=== PATIENT | female | born 1960 | race Caucasian/White ===

== ENCOUNTER 2021-10-29 14:30 | Emergency (ER) | payer BC, SELFPAY ==
--- NOTE | ~2021-10-29 | XR_ITS ---
EXAMINATION: XR ankle RT 2V DATE: 10/29/2021 15:41 INDICATION: Right ankle pain and swelling TECHNIQUE: Anteroposterior, oblique, mortise, and lateral views of the right ankle were obtained. COMPARISON: None. FINDINGS: Diffuse osteopenia. Alignment is normal. Triangular ossicle projecting lung cephalad margin of the po sterior continuous without evident donor site most consistent with an os trigonum. No fracture. Joint spaces are well maintained. No ankle joint effusion. Mild soft tissue swelling about the lateral ma lleolus. IMPRESSION: 1. No acute osseous abnormality. Reviewed, dictated and finalized at location A. FIC ENGINEERING DIRECTOR
--- NOTE | ~2021-10-29 | CT_ITS ---
EXAMINATION: CT knee RT wo con DATE: 10/29/2021 16:29 INDICATION: Right knee tibial plateau fracture TECHNIQUE: High resolution computed tomography (CT) of the right knee was performed without intraveno us contrast. Additional sagittal and coronal reconstructions were performed. Automated exposure contr ol and iterative reconstruction technique were employed. The dose-length product was 546.09 mGy-cm. COMPARISON: Right knee radiographs dated 10/29/2021 FINDINGS: Comminuted fractures involving the majority of the articular surface area of the lateral tibial plate au. There is Doppler type depression of approximately 2.9 x 2.4 cm region at the central to anterior aspect of the lateral tibial plateau. The depression is greatest anteriorly where it raises depth of approximately 8 mm. The fracture remains limited to the lateral tibial plateau and underlying lateral metaphyseal region with no fracture crossing across the medial side of the tibia or involvement of t he medial tibial plateau. There is suggestion of a prior realignment osteotomy of the patellar tendon insertion which appears to be located along the medial side of the anterior tibial tuberosity with s econdary hypertrophic change. No fracture of the patella or visualized distal femur. 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 More subtle cortical irregularity along the medial trochlea with marginal patellar and trochlear oste ophytes consistent with additional osteoarthritis. Multiple tiny calcific densities along the margins of the lateral compartment near the expected location of the menisci which could represent either ch ondrocalcinosis/heterotopic ossification of the menisci or potentially tiny loose fracture fragments. Large layering lipohemarthrosis. IMPRESSION: 1. Comminuted fractures involving the majority of the articular surface of the lateral tibial plateau with 8 mm TI punched type depression of articular fragments comprising significant portion of the an terior to central lateral tibial plateau. 2. Large associated lipohemarthrosis. 3. Tricompartmental osteoarthritis at the right knee with central osteophytes indicating high-grade c hondral malacia along the weightbearing medial and lateral femoral condyles. Reviewed, dictated and finalized at location A. OLOGY CT TECHNOLOGIST IMPRESSION: 1. Comminuted fractures involving the majority of the articular surface of the lateral tibial plateau with 8 mm TI punched type depression of articular fragme nts comprising significant portion of the anterior to central lateral tibial pl ateau. 2. Large associated lipohemarthrosis. 3. Tricompartmental osteoarthritis at the right knee with central osteophytes i ndicating high-grade chondral malacia along the weightbearing medial and latera l femoral condyles.
--- NOTE | ~2021-10-29 | XR_ITS ---
XR tibia fibula RT 2V DATE: 10/29/2021 15:41 INDICATION: Fall. Right leg injury, pain. TECHNIQUE: AP and lateral views COMPARISON: 10/29/2021 right knee FINDINGS: There is diffuse osteopenia. There is depressed interpreted the fracture of the lateral tibial plateau. There is associated promin ent knee joint effusion, with lipohemarthrosis of the knee joint better document on the right knee ra diographs. Inferior pole of patella appears unremarkable on this view. The remainder of the tibia and fibula appear intact. Alignment is preserved at the knee and ankle vasquez nts. Osteoarthritis at the right knee joint. IMPRESSION: Depressed lateral tibial plateau fracture with right knee lipoma hemarthrosis Osteoarthritis at the right knee Osteopenia Reviewed, dictated and finalized at location A. 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
--- NOTE | ~2021-10-29 | XR_ITS ---
XR shoulder RT min 2V DATE: 10/29/2021 15:41 INDICATION: Fall. Right shoulder injury, pain TECHNIQUE: 3 views COMPARISON: None FINDINGS: There is diffuse osteopenia. No fracture or dislocation, periosteal reaction or bone destruction or abnormal soft tissue calcifica tion is evident. There is evidence of rotator cuff atrophy. Cervical spondylosis. Status post sternotomy/cardiac valve replacement IMPRESSION: Diffuse osteopenia Probable rotator cuff atrophy No fracture or dislocation of right shoulder Reviewed, dictated and finalized at location A. INATION SAW OPERATOR
--- NOTE | ~2021-10-29 | XR_ITS ---
XR knee RT min 4V DATE: 10/29/2021 15:41 INDICATION: Fall. Right knee pain. TECHNIQUE: 4 views, including crosstable lateral COMPARISON: None FINDINGS: There is prominent lipohemarthrosis associated with depressed lateral tibial plateau fractu re. There is incongruity of the inferior patellar cortex on the lateral view; subtle patellar fracture is not excluded. Consider CT or MR correlation. Diffuse osteopenia. There is subtle chondrocalcinosis. There is mild osteoarthritis. IMPRESSION: Depressed lateral tibial patella intra-articular fracture with prominent lipohemarthrosis Cannot exclude nondisplaced inferior pole patellar fracture Reviewed, dictated and finalized at location A. SIGN INSTALLER IMPRESSION: Depressed lateral tibial patella intra-articular fracture with prom inent lipohemarthrosis Cannot exclude nondisplaced inferior pole patellar fracture
[2021-10-29 14:21] VITALS: BP 151/91; PULSE 88; RESP 18; TEMP 37; O2SAT 98
--- NOTE | 2021-10-29 14:52 | ED.FALL ---
HPI - Fall General Chief Complaint: Fall Stated Complaint: fall/knee pain Time Seen by Provider: 10/29/21 14:31 History of Present Illness HPI Narrative: 60-year-old female presents the emergency department for evaluation after having a ground-level fall at a local restaurant. Patient reports she was walking and slipped on the wet floor causing her to injure her right knee, ankle and shoulder. Patient reports she also lightly struck her head. Related Data Allergies Allergy/AdvReac Type Severity Reaction Status Date / Time meperidine Allergy Mild RASH Verified 10/29/21 14:32 morphine Allergy Mild VOMITING Verified 10/29/21 14:32 adhesive Allergy Unknown BLISTERS Verified 10/29/21 14:32 Review of Systems Review of Systems: CONSTITUTIONAL: Denies fever, chills, or sweats. EYES: Denies visual changes, redness, or discharge. ENT: Denies rhinorrhea, congestion, sore throat, or otalgia. CARDIOVASCULAR: Denies chest pain, palpitations, or edema. RESPIRATORY: Denies cough or dyspnea. GASTROINTESTINAL: Denies abdominal pain, nausea, vomiting, or diarrhea. GENITOURINARY: Denies dysuria or hematuria. SKIN: Denies rash or itching. MUSCULOSKELETAL: right shoulder, right knee and right ankle pain NEUROLOGIC: Denies headache, numbness, or weakness. Exam Narrative: APPEARANCE: Well appearing, no pain, no distress, well-nourished. HEAD: normocephalic, atraumatic. EYES: PERRLA/EOMI, conjunctivae clear. NOSE: Normal no drainage NECK: Supple. No adenopathy, no masses. RESPIRATORY: Airway patent, respirations nonlabored. Clear to auscultation bilaterally, no rales, rhonchi, wheezing. CARDIOVASCULAR: Regular rate and rhythm without murmurs rubs or gallops. ABDOMINAL: Soft, nontender, nondistended, normal bowel sounds MUSCULOSKELETAL: right shoulder pain with active range of motion. right ankle tenderness and swelling. right knee tenderness and swelling. NEURO: Alert. Cranial nerves II through XII intact SKIN: Warm, dry. Normal Color Course Course Emergency Course: Case wasa discussed with orthopedics. They requested a CT scan of the knee. After the results of the CT Ortho did recommend the patient would require surgery and recommended outpatient follow-up with [facility]. This was communicated to the patient. Patient does have a different orthopedic physician that she prefers to follow-up with. Patient was placed in a knee immobilizer and provided crutches for nonweightbearing. Vital Signs Vital signs: Vital Signs Temperature 98.6 F 10/29/21 14:21 Pulse Rate 88 10/29/21 14:21 Respiratory Rate 18 10/29/21 14:21 Blood Pressure 151/91 H 10/29/21 14:21 Pulse Oximetry 98 10/29/21 14:21 Temperature 98.6 F 10/29/21 14:21 Pulse Rate 88 10/29/21 14:21 Respiratory Rate 18 10/29/21 14:21 Blood Pressure 151/91 H 10/29/21 14:21 Pulse Oximetry 98 10/29/21 14:21 MDM - Fall Imaging Data Radiologist's impression: Impressions Shoulder X-Ray 10/29/21 15:42 IMPRESSION: Diffuse osteopenia Probable rotator cuff atrophy No fracture or dislocation of right shoulder Knee X-Ray 10/29/21 15:43 IMPRESSION: Depressed lateral tibial patella intra-articular fracture with prominent lipohemarthrosis Cannot exclude nondisplaced inferior pole patellar fracture Ankle X-Ray 10/29/21 15:46 IMPRESSION: 1. No acute osseous abnormality. Tibia/Fibula X-Ray 10/29/21 15:46 IMPRESSION: Depressed lateral tibial plateau fracture with right knee lipoma hemarthrosis Osteoarthritis at the right knee Osteopenia Knee CT 10/29/21 16:32 IMPRESSION: 1. Comminuted fractures involving the majority of the articular surface of the lateral tibial plateau with 8 mm TI punched type depression of articular fragments comprising significant portion of the anterior to central lateral tibial plateau. 2. Large associated lipohemarthrosis. 3. Tricompartmental osteoarthritis at the right knee with central osteophytes indicating high-
[2021-10-29] MEDS: HYDROcodone/acetaminophen (*CRX) 5-325 MG TABLET 1 TAB PO (16:13)
[2021-10-29] MEDS: HYDROmorphone HCL INJ (*CRX) 1 MG/ML SYR IM (17:12)
== END 2021-10-29 18:30 | disposition home or self-care (01) ==
PROVIDERS: Emergency Provider Emergency Medicine
DX: S82.141A Displaced bicondylar fracture of right tibia, initial encounter for closed fracture (principal); S46.911A Strain of unspecified muscle, fascia and tendon at shoulder and upper arm level, right arm, initial encounter; S99.911A Unspecified injury of right ankle, initial encounter; M85.861 Other specified disorders of bone density and structure, right lower leg; M85.811 Other specified disorders of bone density and structure, right shoulder; W01.0XXA Fall on same level from slipping, tripping and stumbling without subsequent striking against object, initial encounter; M17.11 Unilateral primary osteoarthritis, right knee
CPT/HCPCS: 73030; 73564; 73590; 73600; 73700; 96372; 99284; A9270; J1170